=== PATIENT | female | born 1970 | race Caucasian/White ===

== ENCOUNTER → 2020-08-02 17:24 | Outpatient (CLI) | payer BC, SELFPAY ==
--- NOTE | ~2020-08-02 | DEXA_ITS ---
Bone Density Report Name: Khadijah Grace Age: 49 Sex: Female Ethnicity: White Date of : 1970 Indication: osteopenia; height loss;postmenopausal Referring Provider: JOBY, BEATRIZ Study: Bone densitometry was performed. Exam Date: August 02, 2020 Accession number: [id number] Bone Density: Region BMD T-score Z-score Classification AP Spine (L1-L4) 0.932 -1.0 -0.5 Normal Femoral Neck (Left) 0.654 -1.8 -1.2 Osteopenia Total Hip (Left) 0.784 -1.3 -0.9 Osteopenia Femoral Neck (Right) 0.722 -1.1 -0.6 Osteopenia Total Hip (Right) 0.772 -1.4 -1.0 Osteopenia Total Hip Mean 0.778 -1.4 -1.0 Osteopenia World Health Organization criteria for BMD impression classify patients as: Normal (T-score at or above -1.0), Osteopenia (T-score between -1.0 and -2.5), or Osteoporosis (T-score at or below -2.5). 10-year Fracture Risk(1): Major Osteoporotic Fracture 3.9% Hip Fracture 0.8% Reported Risk Factors: [place] (), Neck BMD=0.654, BMI=21.0, smoking (1) FRAX(R) Version 3.08. Fracture probability calculated for an untreated patient. Fracture probability may be lower if the patient has received treatment. Previous Exams: Region Exam Age BMD T-score BMD Change BMD Change Date g/cm2 vs Baseline vs Previous AP Spine(L1-L4) 08/02/2020 49 0.932 -1.0 -0.025* -0.025* 08/02/2017 46 0.957 -0.8 Total Hip(Left) 08/02/2020 49 0.784 -1.3 -0.026 -0.026 08/02/2017 46 0.810 -1.1 Total Hip(Right) 08/02/2020 49 0.772 -1.4 -0.018 -0.018 08/02/2017 46 0.789 -1.3 *Denotes significance at 95% confidence level, LSC for AP Spine = 0.022 g/cm2, LSC for Total Hip = 0.027 g/cm2 Clinical Information Provided by Patient: Smokes Has used the following medications: Vitamin D, Calcium Patient maximum height was 67 Menopause Age: 38 Drinks caffeinated beverages Onset of menses at age 13 Number of children 0 Impression: The patient has low bone mass, based on the Left Femoral Neck T-score. The patient has an estimated ten-year risk of hip fracture of 0.8% and an estimated ten-year risk of major fracture of 3.9%, based on the WHO FRAX algorithm. The patient has risk factors, including: smoking. The BMD for the AP Spine(L1-L4) decreased, changing by -0.025 since the last DXA exam. Discussion: BONE DENSITY IS LOW AT ONE OR MORE SKELETAL SITES. This patient's lowest T-score is low at one or mor
--- NOTE | ~2020-08-02 | MM_ITS ---
EXAMINATION: MM scrn maryjo implant BI w manoj HISTORY: Screening mammogram TECHNIQUE: Craniocaudal and mediolateral oblique 3-D tomosynthesis images with implant displacement a nd synthetic 2-D images were generated. Craniocaudal and mediolateral oblique views of the breasts wi thout implant displacement were obtained using full field digital mammography. CAD analysis was submi tted and interpreted. COMPARISON: Comparison to multiple prior studies sequentially, with oldest reviewed study dated 05/23. BREAST PARENCHYMAL COMPOSITION: The breasts are heterogeneously dense, which may obscure small masses . FINDINGS: There is no evidence of suspicious mass, calcification, or architectural distortion to sugg est malignancy in either breast. There has been no suspicious interval change. IMPRESSION: 1. No mammographic evidence of malignancy. 2. Recommend routine screening mammography in one year. BI-RADS Category 1: Negative Reviewed, dictated and finalized at location A. HAND
== END ==
PROVIDERS: PCP Physician Assistant; Visit Provider Nurse Practitioner
DX: M85.88 Other specified disorders of bone density and structure, other site (principal); Z12.31 Encounter for screening mammogram for malignant neoplasm of breast; M85.852 Other specified disorders of bone density and structure, left thigh; M85.851 Other specified disorders of bone density and structure, right thigh
CPT/HCPCS: 77063; 77067; 77080

== ENCOUNTER → 2022-01-31 16:12 | Outpatient (CLI) | payer BC, SELFPAY ==
--- NOTE | ~2022-01-31 | MM_ITS ---
EXAMINATION: MM scrn maryjo implant BI w manoj HISTORY: Screening mammogram TECHNIQUE: Craniocaudal and mediolateral oblique 3-D tomosynthesis images with implant displacement a nd synthetic 2-D images were generated. Craniocaudal and mediolateral oblique views of the breasts wi thout implant displacement were obtained using full field digital mammography. CAD analysis was submi tted and interpreted. COMPARISON: 06/02/2021, 02/24/2019, 08/02/2017 BREAST PARENCHYMAL COMPOSITION: There are scattered areas of fibroglandular density. FINDINGS: There is no evidence of suspicious mass, calcification, or architectural distortion to sugg est malignancy in either breast. There has been no suspicious interval change. IMPRESSION: 1. No mammographic evidence of malignancy. 2. Recommend routine screening mammography in one year. BI-RADS Category 1: Negative Reviewed, dictated and finalized at location A.
== END ==
PROVIDERS: PCP Physician Assistant; Visit Provider Advanced Practice Midwife
DX: Z12.31 Encounter for screening mammogram for malignant neoplasm of breast (principal)
CPT/HCPCS: 77063; 77067

== ENCOUNTER 2022-09-05 07:26 | Emergency (ER) | payer OTHER, SELFPAY ==
--- NOTE | ~2022-09-05 | XR_ITS ---
XR foot RT min 3V DATE: 09/05/2022 07:46 INDICATION: Fall one day ago. Dorsal foot pain and swelling TECHNIQUE: 4 views COMPARISON: None FINDINGS: There is a linear transverse fracture of the base of the fifth metatarsal bone without defi nite intra-articular extension. No other fracture or dislocation is evident. Mild osteoarthrosis at the first metatarsophalangeal joint. IMPRESSION: Transverse nondisplaced fracture of the base of the fifth metatarsal bone Reviewed, dictated and finalized at location A. ATION TECHNICIAN IMPRESSION: Transverse nondisplaced fracture of the base of the fifth metatarsa l bone
[2022-09-05 07:30] VITALS: BP 119/52; PULSE 76; RESP 15; TEMP 36.2; O2SAT 100
--- NOTE | 2022-09-05 09:02 | ED.GENADULT ---
HPI - General Adult General Chief complaint: Extremity Injury, Lower Stated complaint: right foot injury - fell down step Time Seen by Provider: 09/05/22 08:01 History of Present Illness HPI narrative: 51-year-old female presenting emerged department for evaluation of right foot pain. Patient states that she was walking and rolled her ankle and injured her right lateral foot. Patient denies any other pain or injury. Patient denies striking her head denies loss conscious. Patient denies any knee leg or ankle pain. Patient does have swelling and ecchymosis the right lateral foot and pain with weightbearing. Patient does not have an orthopedic physician. Patient denies any other significant past medical history. Related Data Allergies Allergy/AdvReac Type Severity Reaction Status Date / Time ampicillin Allergy Severe TOLD Verified 09/05/22 09:05 REACTION CHILD REQ. HOSPITALIZATION Review of Systems Review of Systems: CONSTITUTIONAL: Denies fever, chills, or sweats. EYES: Denies visual changes, redness, or discharge. ENT: Denies rhinorrhea, congestion, sore throat, or otalgia. CARDIOVASCULAR: Denies chest pain, palpitations, or edema. RESPIRATORY: Denies cough or dyspnea. GASTROINTESTINAL: Denies abdominal pain, nausea, vomiting, or diarrhea. GENITOURINARY: Denies dysuria or hematuria. SKIN: Denies rash or itching. MUSCULOSKELETAL: See HPI NEUROLOGIC: Denies headache, numbness, or weakness. PMFSH Social History Social History Alcohol intake: current Exam Narrative: APPEARANCE: Well appearing, no pain, no distress, well-nourished. HEAD: normocephalic, atraumatic. EYES: PERRLA/EOMI, conjunctivae clear. NECK: Supple. No adenopathy, no masses. RESPIRATORY: Airway patent, respirations nonlabored. Clear to auscultation bilaterally, no rales, rhonchi, wheezing. CARDIOVASCULAR: Regular rate and rhythm without murmurs rubs or gallops. ABDOMINAL: Soft, nontender, nondistended, normal bowel sounds MUSCULOSKELETAL: No tenderness to knee tib-fib or ankle. Patient does have ecchymosis and swelling on right lateral foot. DP pulses intact. Able to move toes. Strong cap refill NEURO: Alert. Cranial nerves II through XII intact. Intact SKIN: Warm, dry. Normal Color PSYCHIATRIC: Normal affect/mood. Course Course Emergency Course: X-ray shows a transverse nondisplaced fracture of the base of the fifth metatarsal bone. Patient was updated on the results of the x-rays. Patient was placed in a posterior short leg and provided crutches for nonweightbearing. Patient was encouraged to have close follow-up with orthopedics. All question concerns were addressed. Patient was comfortable with the plan for discharge and close follow-up. Patient has no other pain or injury. Vital Signs Vital signs: Vital Signs Temperature 97.1 F L 09/05/22 07:30 Pulse Rate 76 09/05/22 07:30 Respiratory Rate 15 09/05/22 07:30 Blood Pressure 119/52 L 09/05/22 07:30 Pulse Oximetry 100 09/05/22 07:30 Oxygen Delivery Room Air 09/05/22 07:30 Temperature 97.1 F L 09/05/22 07:30 Pulse Rate 76 09/05/22 07:30 Respiratory Rate 15 09/05/22 07:30 Blood Pressure 119/52 L 09/05/22 07:30 Pulse Oximetry 100 09/05/22 07:30 Oxygen Delivery Room Air 09/05/22 07:30 Medical Decision Making Vital Signs Vital Signs: Vital Signs Temperature 97.1 F L 09/05/22 07:30 Pulse Rate 76 09/05/22 07:30 Respiratory Rate 15 09/05/22 07:30 Blood Pressure 119/52 L 09/05/22 07:30 Pulse Oximetry 100 09/05/22 07:30 Oxygen Delivery Room Air 09/05/22 07:30 Temperature 97.1 F L 09/05/22 07:30 Pulse Rate 76 09/05/22 07:30 Respiratory Rate 15 09/05/22 07:30 Blood Pressure 119/52 L 09/05/22 07:30 Pulse Oximetry 100 09/05/22 07:30 Oxygen Delivery Room Air 09/05/22 07:30 Imaging Data Radiologist's impression: Impressions Foot X-Ray 09/05/22 07:49 IMPRESSION: Transverse n
== END 2022-09-05 09:15 | disposition home or self-care (01) ==
PROVIDERS: Emergency Provider Emergency Medicine; PCP Physician Assistant
DX: S92.354A Nondisplaced fracture of fifth metatarsal bone, right foot, initial encounter for closed fracture (principal); X50.9XXA Other and unspecified overexertion or strenuous movements or postures, initial encounter
CPT/HCPCS: 29515; 73630; 99284

== ENCOUNTER 2022-10-17 01:47 | Day surgery (SDC) | payer OTHER, SELFPAY ==
[2022-10-09 09:45] VITALS: BMI 19.5
--- NOTE | 2022-10-09 09:50 | PC.NURSE ---
Report to the Outpatient Waiting Room, entrance under the green pavilion located off [facility], at time 1300 on date 10/17/22. Planned Procedure Time: 1500. Time changes happen often and if your time is changed the preop area will call you the afternoon before. - You and your visitor will be asked to self-screen and do not enter if you have any COVID symptoms. - Only one visitor is requested with a max of two and NO children visitors are allowed at this time. - The patient visitor may be requested to leave or wait in car when not with patient due to distancing restrictions. - A mask is optional within the hospital at this time. Patients may have clear liquids (water, carbonated beverages, clear teas, apple juice) until 3 hours prior to surgery with a maximum of 20 ounces. - No food from midnight until time of surgery Take the following medications with a SIP of water the morning of surgery: TYLENOL IF NEEDED DO NOT STOP ANY OF YOUR OTHER PRESCRIPTION MEDICATIONS PRIOR TO SURGERY EXCEPT THE FOLLOWING Medications to discontinue per physician: VITAMINS/SUPPLEMENTS Date to take last dose: 10/13/22 Please no make-up, nail occitan, hairspray, perfume, deodorant, or body powder the day of surgery. No jewelry (including any body piercings) or valuables the day of surgery, leave them at home. Please take a shower or bath the night before, or the morning of, surgery with an antibacterial soap. Wear comfortable, loose fitting clothing. - Jewelry must be removed prior to entering the operating room. Rings and piercings that are not removed may be cut off. - The hospital will not accept responsibility for valuables. - Please leave all valuables, including medications, at home the day of surgery. If you are going home after surgery, a licensed taxi driver must drive you home. - NO public transportation without another adult if you receive anesthesia. - We recommend that an adult stay with you for 24 hours following discharge. - We also recommend that you do not drive, make important decision, drink alcoholic beverages, or take any drugs that were not prescribed by your health care provider for at least 24 hours after your discharge time. Follow any additional instructions given to you from your surgeon. If you or anyone in your household have experienced Covid symptoms in the past week, please notify your surgeon or the nurse liaison at the phone number below for possible testing. Telephone instructions given to PT - BLAKE SEGURA and asked if any additional questions and then verbalized understanding. Patient advised to call surgeon office or pre surgery nurse liaison [phone] if any additional questions.
--- NOTE | 2022-10-16 15:20 | WPDANESEPPF ---
Anes - Initial Pre Proc Eval Procedure: Operation Date: 10/17/22 15:00 Proposed Procedures p Bilateral Breast Saline Implant Exchange - Angelo Morales MD Date/Time: 10/16/22 15:20 Surgeon: Angelo Morales MD Pre Op Diagnosis: left breast implant rupture Patient Data Age: 51 Gender: F Height: 1.7 m Weight: 56.7 kg Allergies Allergy/AdvReac Type Severity Reaction Status Date / Time ampicillin Allergy Severe TOLD Verified 10/17/22 12:42 REACTION CHILD REQ. HOSPITALIZATION Home Medications Medication Instructions Recorded Confirmed Type acetaminophen 650 mg 650 mg PO Q12H 10/04/22 10/09/22 History tablet,extended release (Tylenol Arthritis Pain) ascorbate calcium (vitamin C) 500 500 mg PO DAILY 10/09/22 10/17/22 History mg tablet calcium carbonate 500 mg calcium 500 mg PO DAILY 10/09/22 10/17/22 History (1,250 mg) chewable tablet (Calcium 500) cholecalciferol (vitamin D3) 125 125 mcg PO DAILY 10/09/22 10/17/22 History mcg (5,000 unit) tablet (Vitamin D3) magnesium 250 mg tablet 250 mg PO DAILY 10/09/22 10/17/22 History omega 3-lbj-pcy-fish oil 1,000 mg 1 cap PO DAILY 10/09/22 10/17/22 History (120 mg-180 mg) capsule (Fish Oil) Patient hx anesthesia problems: none Family hx anesthesia problems: none Results Review: All pre-operative results and documents have been reviewed as part of the pre-operative evaluation. [facility] Surgical History Surgical History History of appendectomy History of carpal tunnel release right History of hand surgery left- de Quervain's Family History Family History Mother Hypertension Father High cholesterol Social History Social History Smoking packs per day: 0.5 Smoking cigarettes per day: 10.0 Years smoked: 20 Smoking pack-years: 10.00 Smoking status: Current every day smoker Tobacco type: cigarettes Alcohol intake: current Drinks per week: 8 Substance use: never Substance use type: does not use Living arrangements: with family Occupation/Education: occupation Additional occupation/education comments: administration Spiritual care concerns: No Anes - Eval Final PreProcedure Day of Procedure 10/16/22 15:20 Patient weight: normal Heart: regular rate and rhythm Lungs: clear to auscultation and normal air movement Airway: Mallampati scale class II Neurological: alert and oriented Last oral intake: >/= 8 hours ASA classification: II Emergent: no Anesthetic plan: proceed Anesthesia type and monitoring: general LMA Results Review: All pre-operative results and documents have been reviewed as part of the pre-operative evaluation. Informed Consent: The patient's anesthetic plan and its attendant risks and benefits were discussed with the patient/family/POA. Questions were solicited and answers provided to the satisfaction of the patient/family/POA.
[2022-10-17] VITALS (7 sets, daily range): BP systolic 114–123; BP diastolic 48–82; PULSE 69–99; RESP 16–18; TEMP 36.2–36.8; O2SAT 100; BMI 19.3
[2022-10-17] MEDS: LACTATED RINGERS 1,000 ML 30 ML IV CONT ×2 (12:15→14:41)
--- NOTE | 2022-10-17 12:43 | W.PM.PROC2 ---
Procedure Note - Detailed Date of Procedure 10/17/22 Pre-op Diagnosis left breast implant rupture Post-op Diagnosis Same Procedure Performed Bilateral breast implant exchange Surgeon Angelo Morales MD Anesthesia General Findings Previous implants: Right - 340 intact Left - 340 ruptured No seroma. No worrisome features. New implants: Bilateral Natrelle Saline 240cc filled to 270cc Right REF# [id number] SN [id number] Left REF# [id number] SN [id number] Capsules: Left medial superior capsulotomy Right inferior medial (previous contour irregularity) capsulotomy Dual plane: Bilateral adjusted to dual plane 2 Description of Procedure Preoperatively the risks, benefits, alternatives were discussed in extensive detail. I wanted to be very realistic about the risks involved as well as expectations. I was clear about how we could actually make her worse. Answered all questions to satisfaction. Voiced a clear understanding. Consent obtained. She was taken the operating room placed supine on the operating room table. Anesthesia provided by anesthesiology and prepped and draped in a standard sterile fashion. Surgical time-out was taken. 1% lidocaine and 0.25% Marcaine with epinephrine was used to provide a field block. Tegaderm nipple capps were placed. Fifteen blade used to excise the previous IMF scars. Dissection was continued down until the capsules were identified and entered. Implants removed. Capsule work as above. I then copiously irrigated with 3 L of saline solution on TUR tubing. Verified strict hemostasis. I then irrigated with Betadine containing solution. On the back table the implant was prepared after after soaking with betadine. All air removed and using a fill kit the implant was introduced into the pocket and filled to volumes as above. This was closed with 2-0 PDS followed by 3-0 Monocryl and a running subcuticular 4-0 Monocryl followed by tissue glue. Dressings were placed. She was woken taken to the PACU without difficulty. All instrument sponge counts were correct at the end of the case. Estimated Blood Loss 25 Drains No Packing No Pathology None sent Complications No immediate complications Condition Stable Disposition PACU
--- NOTE | 2022-10-17 13:08 | WPDHPUPDATE1 ---
History and Physical Update Update Date/Time: 10/17/22 13:08 History and Physical has been reviewed, including an updated exam of the patient. There are NO changes in the patient's condition. Risks, benefits, and alternatives have been discussed and questions answered. Patient agrees to proceed with procedure.
[2022-10-17] MEDS: BUPivacaine HCL 0.25% PF 30 ML VIAL INFILTRATE (13:23)
[2022-10-17] MEDS: ceFAZolin 2 GM/D5W 50 ML 2 GM/50 ML BAG IVPB (13:23)
[2022-10-17] MEDS: LIDO 1%/EPINEPHRINE 1:100,000 50 ML VIAL 30 ML INFILTRATE (13:23)
[2022-10-17] MEDS: NACL 0.9% IRRIG POUR BOTTLE 900 ML, GENTAMICIN SULFATE INJ 160 MG, CLINDAMYCIN PHOS INJ... IRRIGATION (13:23)
== END 2022-10-17 16:30 | disposition home or self-care (01) ==
PROVIDERS: PCP Physician Assistant; Visit Provider Surgery Plastic and Reconstructive Surgery
PROC: (CPT 19342; principal; 2022-10-17 15:00)
DX: T85.41XA Breakdown (mechanical) of breast prosthesis and implant, initial encounter (principal); Y83.8 Other surgical procedures as the cause of abnormal reaction of the patient, or of later complication, without mention of misadventure at the time of the procedure; F17.210 Nicotine dependence, cigarettes, uncomplicated
CPT/HCPCS: 19370; 19325; A9270; J0690; J1100; J1580; J2250; J2405; J2704; J3010; J7030; J7120

== ENCOUNTER → 2023-04-09 15:50 | Outpatient (CLI) | payer OTHER, SELFPAY ==
--- NOTE | ~2023-04-09 | MM_ITS ---
EXAMINATION: MM scrn maryjo implant BI w manoj HISTORY: Screening mammogram TECHNIQUE: Craniocaudal and mediolateral oblique 3-D tomosynthesis images with implant displacement a nd synthetic 2-D images were generated. Craniocaudal and mediolateral oblique views of the breasts wi thout implant displacement were obtained using full field digital mammography. CAD analysis was submi tted and interpreted. COMPARISON: Comparison to multiple prior studies sequentially, with oldest reviewed study dated 05/23. BREAST PARENCHYMAL COMPOSITION: The breasts are heterogeneously dense, which may obscure small masses FINDINGS: There is no evidence of suspicious mass, calcification, or architectural distortion to sugg est malignancy in either breast. There has been no suspicious interval change. IMPRESSION: 1. No mammographic evidence of malignancy. 2. Recommend routine screening mammography in one year. BI-RADS Category 1: Negative Reviewed, dictated and finalized at location A.
== END ==
PROVIDERS: PCP Advanced Practice Midwife; Visit Provider Advanced Practice Midwife
DX: Z12.31 Encounter for screening mammogram for malignant neoplasm of breast (principal)
CPT/HCPCS: 77063; 77067

== ENCOUNTER 2024-04-14 15:37 | Outpatient (CLI) | payer OTHER, SELFPAY ==
--- NOTE | ~2024-04-14 | MM_ITS ---
EXAMINATION: MM scrn maryjo implant BI w manoj HISTORY: Screening mammogram TECHNIQUE: Craniocaudal and mediolateral oblique 3-D tomosynthesis images with implant displacement a nd synthetic 2-D images were generated. Craniocaudal and mediolateral oblique views of the breasts wi thout implant displacement were obtained using full field digital mammography. CAD analysis was submi tted and interpreted. COMPARISON: Comparison to multiple prior studies sequentially, with oldest reviewed study dated 05/23. BREAST PARENCHYMAL COMPOSITION: Dense: The breasts are heterogeneously dense, which may obscure small masses FINDINGS: There are bilateral subpectoral saline implants. There is no evidence of suspicious mass, c alcification, or architectural distortion to suggest malignancy in either breast. There has been no s uspicious interval change. IMPRESSION: 1. No mammographic evidence of malignancy. 2. Recommend routine screening mammography in one year. BI-RADS Category 1: Negative Reviewed, dictated and finalized at location B.
== END 2024-04-14 15:38 | disposition home or self-care (01) ==
PROVIDERS: PCP Obstetrics & Gynecology Gynecology; Visit Provider Advanced Practice Midwife
DX: Z12.31 Encounter for screening mammogram for malignant neoplasm of breast (principal)
CPT/HCPCS: 77063; 77067

== ENCOUNTER 2025-01-26 08:11 | Outpatient (CLI) | payer OTHER, SELFPAY ==
--- NOTE | ~2025-01-26 | DEXA_ITS ---
Bone Density Report Name: BLAKE SEGURA Age: 54 Sex: Female Ethnicity: White Date of : 1970 Indication: osteopenia; height loss; Referring Provider: TERRA NICOLAS Study: Bone densitometry was performed. Exam Date: January 26, 2025 Accession number: [id number] Bone Density: Region BMD T-score Z-score Classification AP Spine(L1-L4) 0.915 -1.2 -0.3 Osteopenia Femoral Neck (Left) 0.648 -1.8 -0.9 Osteopenia Total Hip (Left) 0.752 -1.6 -1.0 Osteopenia Femoral Neck (Right) 0.651 -1.8 -0.9 Osteopenia Total Hip (Right) 0.742 -1.6 -1.1 Osteopenia Total Hip Mean 0.747 -1.6 -1.1 Osteopenia World Health Organization criteria for BMD impression classify patients as: Normal (T-score at or above -1.0), Osteopenia (T-score between -1.0 and -2.5), or Osteoporosis (T-score at or below -2.5). 10-year Fracture Risk(1): Major Osteoporotic Fracture 5.6% Hip Fracture 1.1% Reported Risk Factors: [place] (), Neck BMD=0.648, BMI=20.8, smoking (1) FRAX(R) Version 3.08. Fracture probability calculated for an untreated patient. Fracture probability may be lower if the patient has received treatment. Previous Exams: -- Region Exam Age BMD T-score BMD Change BMD Change Date g/cm2 vs Baseline vs Previous -- AP Spine (L1-L4) 01/26/2025 54 0.915 -1.2 -4.4%* -1.8% 08/02/2020 49 0.932 -1.0 -2.7%* -2.7%* 08/02/2017 46 0.957 -0.8 Total Hip(Left) 01/26/2025 54 0.752 -1.6 -7.2%* -4.1%* 08/02/2020 49 0.784 -1.3 -3.2% -3.2% 08/02/2017 46 0.810 -1.1 Total Hip(Right) 01/26/2025 54 0.742 -1.6 -6.1%* -3.9%* 08/02/2020 49 0.772 -1.4 -2.2% -2.2% 08/02/2017 46 0.789 -1.3 -- *Denotes significance at 95% confidence level, LSC for AP Spine = 0.022 g/cm2, LSC for Total Hip = 0.027 g/cm2 Clinical Information Provided by Patient: Smokes Has used the following medications: Vitamin D, Calcium Patient maximum height was 67 Menopause Age: 38 Onset of menses at age 13 Number of children 0 Missed period for more than 6 months in a row Impression: The patient has low bone mass, based on the Left Femoral Neck T-score. The patient has an estimated ten-year risk of hip fracture of 1.1% and an estimated ten-year risk of major fracture of 5.6%, based on the WHO FRAX algorithm. The patient has risk factors, including: smoking. The BMD for the Total Hip(Left) decreased, changing by -4.1% since the last DXA exam. The BMD for the Total Hip(Right) decreased, changing by -3.9% since the last DXA exam. Discussion: BONE DENSITY IS LOW AT ONE OR MORE SKELETAL SITES. This patient's lowest T-score is low at one or more skeletal sites. It meets the World Health Organization's (WHO) criteria for ?low bone mass? (T-score between -1.0 and -2.5). The patient's 10-year risk of fracture as calculated by FRAX is less than the threshold where pharmacological therapy is recommended by the National Osteoporosis Foundation (NOF). However, all treatment decisions require clinical judgment and consideration of individual patient factors, including patient preferences, comorbidities, previous drug use, risk factors not captured in the FRAX model (e.g., frailty, falls, vitamin D deficiency, increased bone turnover, interval significant decline in bone density) and possible under or overestimation of fracture risk by FRAX. The patient should follow a healthful lifestyle (good nutrition with adequate calcium and vitamin D, and appropriate weight-bearing exercise). Follow-Up: Consider repeating this study in 2 years to reassess this patient's status, or sooner if there is some new clinical indication. Reported by: KALEY on 01/26/2025 8:31:00 AM. Reviewed, dictated and finalized at location A.
== END 2025-01-26 08:12 | disposition home or self-care (01) ==
LOC: MICIMG 08:12
PROVIDERS: PCP Obstetrics & Gynecology Gynecology; Visit Provider Obstetrics & Gynecology Gynecology
DX: M85.88 Other specified disorders of bone density and structure, other site (principal); M85.852 Other specified disorders of bone density and structure, left thigh; M85.851 Other specified disorders of bone density and structure, right thigh
CPT/HCPCS: 77080

== ENCOUNTER 2025-04-20 15:54 | Outpatient (CLI) | payer OTHER, SELFPAY ==
--- NOTE | ~2025-04-20 | MM_ITS ---
EXAMINATION: MM scrn maryjo implant BI w manoj HISTORY: Screening mammogram TECHNIQUE: Craniocaudal and mediolateral oblique 3-D tomosynthesis images with implant displacement and synthetic 2-D images were generated. Craniocaudal and mediolateral oblique views of the breasts without implant displacement were obtained using full field digital mammography. CAD analysis was submitted and interpreted. COMPARISON: Comparison to multiple prior studies sequentially, with oldest reviewed study dated 08/02/2017. BREAST PARENCHYMAL COMPOSITION: Not dense: There are scattered areas of fibroglandular density. FINDINGS: There is no evidence of suspicious mass, calcification, or architectural distortion to suggest malignancy in either breast. There has been no suspicious interval change. IMPRESSION: 1. No mammographic evidence of malignancy. 2. Recommend routine screening mammography in one year. BI-RADS Category 1: Negative Reviewed, dictated and finalized at location B.
== END 2025-04-20 15:55 | disposition home or self-care (01) ==
LOC: MICIMG 15:55
PROVIDERS: PCP Obstetrics & Gynecology Gynecology; Visit Provider Obstetrics & Gynecology Gynecology
DX: Z12.31 Encounter for screening mammogram for malignant neoplasm of breast (principal); Z98.82 Breast implant status
CPT/HCPCS: 77063; 77067

== ENCOUNTER 2025-07-10 11:35 | Outpatient (CLI) | payer OTHER, SELFPAY ==
--- NOTE | ~2025-07-10 | US_ITS ---
US thyroid INDICATION: Thyroid nodule TECHNIQUE: Real-time sonographic images of the thyroid gland were obtained. COMPARISON: No prior studies for comparison. FINDINGS: The right thyroid lobe measures 4.5 x 1.6 x 1.4 cm. The left thyroid lobe measures 4.5 x 1.6 x 1.4 cm. There is normal echotexture and echogenicity throughout the thyroid gland. In the right lobe there multiple small cysts largest measuring 4 mm. No solid nodules. In the left lobe there is a solid hypoechoic 8mm mass which is wider than tall, smoothly marginated demonstrating no echogenic foci. Isthmus is unremarkable. Normal vascular flow is present. IMPRESSION: 1. Solid 8 mm left thyroid mass, ACR TI-RADS 4 (moderately suspicious)-does not meet size criteria for FNA. Recommend sonographic follow-up in 12-24 months. Reviewed, dictated and finalized at location O. [employer]OPER IMPRESSION: 1. Solid 8 mm left thyroid mass, ACR TI-RADS 4 (moderately suspicious)-does no t meet size criteria for FNA. Recommend sonographic follow-up in 12-24 months.
== END 2025-07-10 11:36 | disposition home or self-care (01) ==
LOC: MICIMG 11:36
PROVIDERS: PCP Nurse Practitioner; Visit Provider Nurse Practitioner
DX: E04.1 Nontoxic single thyroid nodule (principal)
CPT/HCPCS: 76536